=== PATIENT | female | born 1950 | race Caucasian/White ===

== ENCOUNTER 2018-10-25 14:13 | Inpatient (IN) | payer MEDICARE, OTHER ==
[~2018-10-25] VITALS: Ht 165.1 cm; Wt 98.6 kg
[2018-10-25] MEDS ORDERED: METO-429 PO (16:16)
[2018-10-25] MEDS ORDERED: LEVO75TA5 PO (16:17)
[2018-10-25] MEDS ORDERED: LOSA50TA14 PO (16:18)
[2018-10-25] MEDS ORDERED: CLON-379 PO (16:18)
[2018-10-25] MEDS ORDERED: OMEP1CAP24 PO (16:19)
[2018-10-25] MEDS ORDERED: ACETAMINOPHEN 325 MG TAB PO PRN (16:30)
[2018-10-25] MEDS ORDERED: ONDANSETRON 4 MG INJ IV PRN (16:30)
[2018-10-25] MEDS ORDERED: LIDOCAINE 1% (MPF) 5 ML VIAL ONE (17:42)
[2018-10-25] MEDS ORDERED: ALBUTEROL 0.083% (NEB) 2.5 MG/3 ML AMP HHN STA (19:02)
--- NOTE | 2018-10-25 19:02 | ERD ---
ER Documentation Chief Complaint Chief Complaint pt is bib family with c/o sob, sent by PMD for "fluid in lungs" HPI Patient is a 68-year-old female with hypertension who presents for shortness of breath. The patient was sent by Dr. Altman for shortness of breath and pleural effusion. The patient's symptoms started 2-3 months ago and have been worsening. She has shortness of breath with minimal exertion. Patient denies any pain. The patient has no fevers. Upon review of old medical records this is the patient's first visit to the emergency department. ROS All systems reviewed and are negative except as per history of present illness. Medications Home Meds Reported Medications Omeprazole/Sodium Bicarbonate (OMEPRAZOLE-BICARB 40-1,100 CAP) 1 Each Capsule, 1 CAP PO NEEDED, #30 CAP 10/25/18 Losartan Potassium* (Losartan Potassium*) 50 Mg Tablet, 50 MG PO DAILY, TAB 10/25/18 Clonidine Hcl* (Clonidine Hcl*) 0.1 Mg Tab, 0.1 MG PO BID, TAB 10/25/18 Levothyroxine Sodium* (Levothyroxine Sodium*) 75 Mcg Tablet, 75 MCG PO BEFORE BREAKFAST, #30 TAB 10/25/18 Metoprolol Tartrate* (Lopressor*) 50 Mg Tab, 50 MG PO BID, #60 TAB 10/25/18 Allergies Allergies: Coded Allergies: No Known Allergy (Unverified , 10/25/18) PMhx/Soc History of Surgery: No Anesthesia Reaction: No Hx Neurological Disorder: No Hx Respiratory Disorders: No Hx Cardiac Disorders: Yes (HTN) Hx Psychiatric Problems: No Hx Miscellaneous Medical Probl: No Hx Alcohol Use: No Hx Substance Use: No Hx Tobacco Use: No Smoking Status: Never smoker FmHx Family History: diabetes Physical Exam Vitals Vital Signs Date Temp Pulse Resp B/P (MAP) Pulse Ox O2 O2 Flow FiO2 Time Delivery Rate 10/25/18 98.4 79 23 159/62 95 Nasal 3.0 18:52 (94) Cannula 10/25/18 99.1 79 19 152/87 95 Nasal 2.0 18:23 (108) Cannula 10/25/18 99.1 87 19 148/89 95 Nasal 2.0 17:11 (108) Cannula 10/25/18 99.1 96 19 159/89 95 Nasal 2.0 16:16 (112) Cannula 10/25/18 Nasal 3 16:16 Cannula 10/25/18 99.1 95 20 177/86 94 14:16 (116) Physical Exam Const: No acute distress Head: Atraumatic Eyes: Normal Conjunctiva ENT: Normal External Ears, Nose and Mouth. Neck: Full range of motion. No meningismus. Resp: Decreased breath sounds on the left Cardio: Regular rate and rhythm, no murmurs Abd: Soft, non tender, non distended. Normal bowel sounds Skin: No petechiae or rashes Back: No midline or flank tenderness Ext: No cyanosis, or edema Neur: Awake and alert Psych: Normal Mood and Affect Result Diagram: 10/25/18 1555 10/25/18 1555 Results 24 hrs Laboratory Tests Test 10/25/18 15:55 10/25/18 16:04 10/25/18 17:11 White Blood Count 8.5 10^3/ul Red Blood Count 6.09 10^6/ul Hemoglobin 15.9 g/dl Hematocrit 49.4 % Mean Corpuscular Volume 81.1 fl Mean Corpuscular Hemoglobin 26.1 pg Mean Corpuscular 32.2 g/dl Hemoglobin Concent Red Cell Distribution Width 13.6 % Platelet Count 257 10^3/UL Mean Platelet Volume 10.2 fl Immature Granulocytes % 0.600 % Neutrophils % 69.7 % Lymphocytes % 17.4 % Monocytes % 6.6 % Eosinophils % 4.9 % Basophils % 0.8 % Nucleated Red Blood Cells % 0.0 /100WBC Immature Granulocytes # 0.050 10^3/ul Neutrophils # 5.9 10^3/ul Lymphocytes # 1.5 10^3/ul Monocytes # 0.6 10^3/ul Eosinophils # 0.4 10^3/ul Basophils # 0.1 10^3/ul Nucleated Red Blood Cells # 0.0 10^3/ul Sodium Level 141 mmol/L Potassium Level 4.6 mmol/L Chloride Level 107 mmol/L Carbon Dioxide Level 26 mmol/L Anion Gap 8 Blood Urea Nitrogen 11 mg/dl Creatinine 0.69 mg/dl Est Glomerular Filtrat Rate mL/min > 60 mL/min Glucose Level 92 mg/dl Lactic Acid Level 1.5 mmol/L Calcium Level 10.4 mg/dl POC Venous Lactate 1.2 mmol/L Prothrombin Time 13.6 Sec Prothrombin Time Ratio 1.1 INR International Normalized Ratio 1.03 Activated Partial Thromboplast 26.9 Sec Time Current Medications Medications Dose Sig/Rajesh Start Time Status Last (Trade) Ordered Route PRN Stop Time Admin Dose Reason Admin Ondansetron 4 mg BRIDGE ORDER 10/25/18 HCl (Zofran PRN IV 16:30 Inj) NAUSEA/VOMITI 10/26/18 16:29 NG 650 mg ER BRIDGE 10/25/18 Acetaminophen PRN PO 16:30 (Tylenol .MILD PAIN 10/26/18 16:29 Tab) 1-3 OR TEMP Lidocaine 5 ml STK-MED 10/25/18 DC (Xylocaine ONCE .ROUTE 17:42 1% (Mpf)) 10/25/18 17:43 Procedures/MDM Chest x-ray shows pleural effusion per radiology. Smoking Cessation Therapy: Pt. was lectured for greater than 3 minutes on the health risks of continued smoking and the benefits of cessation. Patient is a 68-year-old female who presents with shortness of breath. She was found to have left-sided pleural effusion. She had an ultrasound-guided thoracentesis performed by radiology. I doubt pneumonia at this time. I doubt sepsis. The patient will be admitted to the care of Dr. Altman the primary doctor to a medical surgical bed. Departure Diagnosis: Primary Impression: Pleural effusion Additional Impression: Shortness of breath Condition: IFRAH Bo MD Oct 25, 2018 19:02
[2018-10-25 23:00] VITALS: Ht 165.1 cm; Wt 98.6 kg
[2018-10-26 00:30] VITALS: BP 135/65; PULSE 112; RESP 18
[2018-10-26] MEDS ORDERED: ACETAMINOPHEN 500 MG TAB PO PRN (01:30)
[2018-10-26] MEDS ORDERED: ALBUTEROL/IPRATROPIUM (NEB) 3 ML AMP HHN PRN (01:30)
[2018-10-26] MEDS ORDERED: ZOLPIDEM 5 MG TAB PO PRN (01:30)
[2018-10-26] MEDS: LEVOTHYROXINE 75 MCG TAB PO SCH (06:52)
[2018-10-26] MEDS: PANTOPRAZOLE (EC) 40 MG TAB PO SCH (06:52)
[2018-10-26 08:00] VITALS: BP 161/70; PULSE 93; RESP 19
[2018-10-26] MEDS: LOSARTAN 50 MG TAB PO SCH (08:43)
[2018-10-26] MEDS: METOPROLOL 25 MG TAB PO SCH ×2 (08:43→20:36)
[2018-10-26] MEDS: NICOTINE (21 MG/24 HR) PATCH TRANSDERM SCH (08:46)
--- NOTE | 2018-10-26 08:49 | CONS ---
Assessment/Plan Assessment/Plan Hospital Course (Demo Recall) Dyspnea: likely from underlying pleural effusion +/- COPD exacerbation Left pleural effusion: with report of mass, likely malignant Left lung mass COPD HTN Tobacco abuse -?need for repeat thoracentesis -continue metoprolol 25mg BID, losartan 50mg, clonidine 0.1mg BID -check echo Consultation Date/Type/Reason Admit Date/Time Oct 25, 2018 at 16:08 Date of Consultation: Oct 26, 2018 Type of Consult Cardiology Reason for Consultation Dyspnea, HTN Requesting Provider: MAGDA JOSÉ MD Date/Time of Note DATE: 10/26/18 TIME: 08:40 Hx of Present Illness 68 yo F with a h/o recurrent left pleural effusion, reported lung mass but pt denies, HTN, COPD, tobacco use who was sent in by Dr. José for dyspnea and for thoracentesis. She had 1 L removed yesterday but the CXR looks minimally improved. She feels better but still SOB. This has been ongoing for 2-3 months per pt. She has had a chest CT and PET but she does not think she has a mass. No cardiac issues that she is aware of. No chest pain with or without exertion. No leg edema. Has been smoking 1.5 ppd for 50 yrs. per hPI Past Medical History per hPI Home Meds Reported Medications Omeprazole/Sodium Bicarbonate (OMEPRAZOLE-BICARB 40-1,100 CAP) 1 Each Capsule, 1 CAP PO NEEDED, #30 CAP 10/25/18 Losartan Potassium* (Losartan Potassium*) 50 Mg Tablet, 50 MG PO DAILY, TAB 10/25/18 Clonidine Hcl* (Clonidine Hcl*) 0.1 Mg Tab, 0.1 MG PO BID, TAB 10/25/18 Levothyroxine Sodium* (Levothyroxine Sodium*) 75 Mcg Tablet, 75 MCG PO BEFORE BREAKFAST, #30 TAB 10/25/18 Metoprolol Tartrate* (Lopressor*) 50 Mg Tab, 50 MG PO BID, #60 TAB 10/25/18 Medications Current Medications Ondansetron HCl (Zofran Inj) 4 mg BRIDGE ORDER PRN IV NAUSEA/VOMITING; Start 10/25/18 at 16:30; Stop 10/26/18 at 16:29 Acetaminophen (Tylenol Tab) 650 mg ER BRIDGE PRN PO .MILD PAIN 1-3 OR TEMP; Start 10/25/18 at 16:30; Stop 10/26/18 at 16:29 Clonidine (Catapres) 0.1 mg BID PO ; Start 10/26/18 at 09:00 Levothyroxine Sodium (Synthroid) 75 mcg BEFORE BREAKFAST PO Last administered on 10/26/18at 06:52; Admin Dose 75 MCG; Start 10/26/18 at 07:00 Losartan Potassium (Cozaar) 50 mg DAILY PO ; Start 10/26/18 at 09:00 Albuterol/ Ipratropium (Duoneb) 3 ml Q8H RESP THERAPY PRN HHN SHORTNESS OF BREATH; Start 10/26/18 at 01:30 Acetaminophen (Tylenol Tab) 500 mg Q8 PRN PO MILD PAIN(1-3)OR ELEVATED TEMP Last administered on 10/26/18at 06:53; Admin Dose 500 MG; Start 10/26/18 at 01:30 Pantoprazole (Protonix Tab) 40 mg DAILY@06 PO Last administered on 10/26/18at 06:52; Admin Dose 40 MG; Start 10/26/18 at 06:00 Metoprolol Tartrate (Lopressor) 25 mg BID PO ; Start 10/26/18 at 09:00 Zolpidem Tartrate (Ambien) 5 mg HS PRN PO INSOMNIA; Start 10/26/18 at 01:30 Nicotine (Nicoderm 21 Mg/ 24hr) 1 patch DAILY TRANSDERM ; Start 10/26/18 at 09:00 Allergies: Coded Allergies: No Known Allergy (Unverified , 10/25/18) Social History Smoking Status: Current every day smoker Exam/Review of Systems Vital Signs Vitals Vital Signs Date Temp Pulse Resp B/P (MAP) Pulse Ox O2 O2 Flow FiO2 Time Delivery Rate 10/26/18 98.4 93 19 161/70 91 Room Air 08:00 (100) 10/25/18 3.0 23:35 10/25/18 21 19:34 Intake and Output 10/25/18 10/25/18 10/26/18 1414:59 22:59 06:59 IntakeIntake Total 360 ml BalanceBalance 360 ml Exam Constitutional: alert, oriented Psych: no complaints, nl mood/affect Head: normocephalic, atraumatic Neck: No jvd Respiratory: diminished breath sounds (left base), wheezing (mild anterior ); No clear to auscultation Cardiovascular: regular rate and rhythm; No edema, No systolic murmur Gastrointestinal: soft, non-tender; No distended Neurological: nl mental status, nl speech Labs Result Diagram: 10/25/18 1555 10/25/18 1555 Results 24hrs Laboratory Tests Test 10/25/18 15:55 10/25/18 16:04 10/25/18 17:11 10/25/18 17:30 White Blood Count 8.5 Red Blood Count 6.09 H Hemoglobin 15.9 Hematocrit 49.4 H Mean Corpuscular 81.1 L Volume Mean Corpuscular 26.1 L Hemoglobin Mean Corpuscular 32.2 Hemoglobin Concent Red Cell 13.6 Distribution Width Platelet Count 257 Mean Platelet 10.2 Volume Immature 0.600 H Granulocytes % Neutrophils % 69.7 Lymphocytes % 17.4 Monocytes % 6.6 Eosinophils % 4.9 Basophils % 0.8 Nucleated Red 0.0 Blood Cells % Immature 0.050 H Granulocytes # Neutrophils # 5.9 Lymphocytes # 1.5 Monocytes # 0.6 Eosinophils # 0.4 Basophils # 0.1 Nucleated Red 0.0 Blood Cells # Sodium Level 141 Potassium Level 4.6 Chloride Level 107 Carbon Dioxide 26 Level Anion Gap 8 Blood Urea 11 Nitrogen Creatinine 0.69 Est Glomerular > 60 Filtrat Rate mL/min Glucose Level 92 Lactic Acid Level 1.5 Calcium Level 10.4 H POC Venous Lactate 1.2 Prothrombin Time 13.6 Prothrombin Time 1.1 Ratio INR International 1.03 Normalized Ratio Activated 26.[address] Time Body Fluid Type PLEURAL FLUID Body Fluid Volume 1050.0 Body Fluid Color CHANCE Body Fluid CLOUDY Appearance Body Fluid WBC 5719 Body Fluid RBC 85265 (Auto) Body Fluid 5.1 Polynuclear WBCs (%) Body Fluid 94.9 Mononuclear Cells % Auto Body Fluid Glucose 89 Body Fluid Total 5.4 Protein Body Fluid 731 Lactate Dehydrogen ase Test 10/25/18 18:48 10/26/18 06:06 Lactic Acid Level 1.0 Magnesium Level 2.0 Iron Level 39 Total Iron Binding 294 Capacity Percent Iron 13 L Saturation Thyroid 2.040 Stimulating Hormone (TSH) Medications Medications Current Medications Ondansetron HCl (Zofran Inj) 4 mg BRIDGE ORDER PRN IV NAUSEA/VOMITING; Start 10/25/18 at 16:30; Stop 10/26/18 at 16:29 Acetaminophen (Tylenol Tab) 650 mg ER BRIDGE PRN PO .MILD PAIN 1-3 OR TEMP; Start 10/25/18 at 16:30; Stop 10/26/18 at 16:29 Clonidine (Catapres) 0.1 mg BID PO ; Start 10/26/18 at 09:00 Levothyroxine Sodium (Synthroid) 75 mcg BEFORE BREAKFAST PO Last administered on 10/26/18at 06:52; Admin Dose 75 MCG; Start 10/26/18 at 07:00 Losartan Potassium (Cozaar) 50 mg DAILY PO ; Start 10/26/18 at 09:00 Albuterol/ Ipratropium (Duoneb) 3 ml Q8H RESP THERAPY PRN HHN SHORTNESS OF BREATH; Start 10/26/18 at 01:30 Acetaminophen (Tylenol Tab) 500 mg Q8 PRN PO MILD PAIN(1-3)OR ELEVATED TEMP Last administered on 10/26/18at 06:53; Admin Dose 500 MG; Start 10/26/18 at 01:30 Pantoprazole (Protonix Tab) 40 mg DAILY@06 PO Last administered on 10/26/18at 06:52; Admin Dose 40 MG; Start 10/26/18 at 06:00 Metoprolol Tartrate (Lopressor) 25 mg BID PO ; Start 10/26/18 at 09:00 Zolpidem Tartrate (Ambien) 5 mg HS PRN PO INSOMNIA; Start 10/26/18 at 01:30 Nicotine (Nicoderm 21 Mg/ 24hr) 1 patch DAILY TRANSDERM ; Start 10/26/18 at 09:00 JOSE ROBERTO CROCKETT Oct 26, 2018 08:49
--- NOTE | 2018-10-26 10:47 | HP ---
Date/Time of Note Date/Time of Note DATE: 10/26/18 TIME: 10:25 Assessment/Plan VTE Prophylaxis Risk score (from Nsg)>0 risk: 4 SCD applied (from Nsg): No SCD contraindicated: other (On.) Pharmacological prophylaxis: LMWH Lines/Catheters IV Catheter Type (from Nrs): [place] [employer] line still needed: No Urinary Cath still in place: No Reason Cath still needed: urinary retention, other (indicate) (On and of incontinence.) Assessment/Plan Assessment/Plan 1. Pet proven lung mass size of almost 10 cm in the apical region of left upper lobe ,demonstrating associated air bronchograms with according to the patient PET scan report there was a lower level of metabolic activity in this process is most consistent with a benign process such mucous plaque causing postobstructive atelectasis versus resolving pneumonia the probability for hypometabolic carcinoma cannot be excluded(according to PET report). 2. PET proven 1.3/0 0.8 cm well-circumscribed bright circumscribed nodular soft tissue attenuation in the left upper lobe abutting the descending thoracic aorta at the level of just below the aortic arch demonstrating maximum SUV of 4.2 this is nonspecific finding which may be malignant or inflammatory. 3.S/P thoracentesis, 10/25/2018; Approximately 1.0 liters of serous fluid was aspirated for moderate sized right pleural effusion. 4. Thickening of the mucosa of the distal esophagus measuring 1.3 cm in thickness demonstrating maximum SUV of 5.0 without focal mass most likely chronic esophagitis;According to PET scan . 5.0.9 to 0.9 cm left adrenal gland nodule likely an adenoma(According to PET). 6.Hepatomegaly 7.S/P cholecystectomy . 8.Bilateral hemorrhagic renal cysts . 9.Atherosclerotic disease. 10.COPD 11. nicotine addiction with 1 to 1/2 pack smoking more than 50 years until yesterday. History of short period of not smoking couple of months. 12. Morbid obesity 13. Snoring with apnea 14. Dyslipidemia 15. Low back pain 16. The lumbar sacral and cervical radiculopathy 17. Pelvic relaxation with mixed incontinence 18. 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 19. 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 20. Polycythemia 21. Hypothyroidism currently on levothyroxine 75 mcg daily. 22. Incomplete data. Result Diagram: 10/25/18 1555 10/25/18 1555 Results 24hrs Laboratory Tests Test 10/25/18 15:55 10/25/18 16:04 10/25/18 17:11 10/25/18 17:30 White Blood Count 8.5 Red Blood Count 6.09 H Hemoglobin 15.9 Hematocrit 49.4 H Mean Corpuscular 81.1 L Volume Mean Corpuscular 26.1 L Hemoglobin Mean Corpuscular 32.2 Hemoglobin Concent Red Cell 13.6 Distribution Width Platelet Count 257 Mean Platelet 10.2 Volume Immature 0.600 H Granulocytes % Neutrophils % 69.7 Lymphocytes % 17.4 Monocytes % 6.6 Eosinophils % 4.9 Basophils % 0.8 Nucleated Red 0.0 Blood Cells % Immature 0.050 H Granulocytes # Neutrophils # 5.9 Lymphocytes # 1.5 Monocytes # 0.6 Eosinophils # 0.4 Basophils # 0.1 Nucleated Red 0.0 Blood Cells # Sodium Level 141 Potassium Level 4.6 Chloride Level 107 Carbon Dioxide 26 Level Anion Gap 8 Blood Urea 11 Nitrogen Creatinine 0.69 Est Glomerular > 60 Filtrat Rate mL/min Glucose Level 92 Lactic Acid Level 1.5 Calcium Level 10.4 H POC Venous Lactate 1.2 Prothrombin Time 13.6 Prothrombin Time 1.1 Ratio INR International 1.03 Normalized Ratio Activated 26.[address] Time Body Fluid Type PLEURAL FLUID Body Fluid Volume 1050.0 Body Fluid Color CHANCE Body Fluid CLOUDY Appearance Body Fluid WBC 5719 Body Fluid RBC 27938 (Auto) Body Fluid 5.1 Polynuclear WBCs (%) Body Fluid 94.9 Mononuclear Cells % Auto Body Fluid Glucose 89 Body Fluid Total 5.4 Protein Body Fluid 731 Lactate Dehydrogen ase Test 10/25/18 18:48 10/26/18 06:06 Lactic Acid Level 1.0 Magnesium Level 2.0 Iron Level 39 Total Iron Binding 294 Capacity Percent Iron 13 L Saturation Thyroid 2.040 Stimulating Hormone (TSH) HPI/ROS Admit Date/Time Admit Date/Time Oct 25, 2018 at 16:08 Hx of Present Illness Shortness of breath cough getting tired easily. This 68 years old female with long history of heavy smoking 1 to 1/2 pack a day was evaluated as an outpatient and was found to have a lung mass size of almost 10 cm in the apical region of left upper lobe ,demonstrating associated air bronchograms with according to the patient PET scan report there was a lower level of metabolic activity in this process is most consistent with a benign process such mucous plaque causing postobstructive atelectasis versus resolving pneumonia the probability for hypometabolic carcinoma cannot be excluded. There was also a 1.3/0 0.8 cm well- circumscribed bright circumscribed nodular soft tissue attenuation in the left upper lobe abutting the descending thoracic aorta at the level of just below the aortic arch demonstrating maximum SUV of 4.2 this is nonspecific finding which may be malignant or inflammatory; there is also moderate sized right pleural effusion. According to PET there was also thickening of the mucosa of the distal esophagus measuring 1.3 cm in thickness demonstrating maximum SUV of 5.0 without focal mass most likely chronic esophagitis. 0.9 to 0.9 cm left adrenal gland nodule likely an adenoma hepatomegaly status post cholecystectomy not bilateral hemorrhagic renal cysts and atherosclerotic disease. Examination was done in the diagnostic imaging network [facility] imaging center telephone #[phone] fax #[phone]. Date of examination 10/20/2018. ROS Constitutional: chills, diaphoresis, fatigue, nausea, poor po, weight change; No no complaints, No improved, No disoriented, No febrile, No other Eyes: redness, visual change; No no complaints, No pain, No discharge, No other ENT: congestion, dysphagia, sore throat; No no complaints, No bleeding, No pain, No discharge, No other Respiratory: cough, pleuritic pain, shortness of breath, sputum, wheezing; No no complaints, No pain, No other Cardiovascular: chest pain, edema, lightheadedness, orthopenea, palpitations, paroxysmal nocturnal dyspnea; No no complaints, No other Gastrointestinal: constipation, decreased appetite, flatus, nausea, passing stool Genitourinary: dysuria; No no complaints, No bleeding, No discharge, No flank pain, No hematuria, No other Musculoskeletal: back pain, bone/joint pain, neck pain; No no complaints, No restricted range of motion, No swelling, No other Skin: pruritis; No no complaints, No bruising, No erythema, No laceration, No rash, No skin lesions, No other Neurologic: dizziness, focal-weakness, syncope; No no complaints, No confusion, No headache, No seizure, No other Endocrine: dry skin; No no complaints, No polyuria, No polydypsia, No temp intolerance, No weight change, No other Lymphatic: No no complaints, No adenopathy, No tender nodes, No lymphadema, No other Psychological: anxiety; No no complaints, No nl mood/affect, No confusion, No depression, No suicidal, No other Immunologic: No no complaints, No immunodeficiency, No pruritis, No rhinitis, No urticaria, No other PMH/Family/Social Past Medical History Medical History: angina, congestive heart failure, coronary artery disease, diabetes, gallstones, GERD, high cholesterol, hypertension, hypothyroid, renal disease, urinary tract infection Medications Current Medications Ondansetron HCl (Zofran Inj) 4 mg BRIDGE ORDER PRN IV NAUSEA/VOMITING; Start 10/25/18 at 16:30; Stop 10/26/18 at 16:29 Acetaminophen (Tylenol Tab) 650 mg ER BRIDGE PRN PO .MILD PAIN 1-3 OR TEMP; Start 10/25/18 at 16:30; Stop 10/26/18 at 16:29 Clonidine (Catapres) 0.1 mg BID PO Last administered on 10/26/18 08:45; Admin Dose 0.1 MG; Start 10/26/18 at 09:00 Levothyroxine Sodium (Synthroid) 75 mcg BEFORE BREAKFAST PO Last administered on 10/26/18 06:52; Admin Dose 75 MCG; Start 10/26/18 at 07:00 Losartan Potassium (Cozaar) 50 mg DAILY PO Last administered on 10/26/18 08:43; Admin Dose 50 MG; Start 10/26/18 at 09:00 Albuterol/ Ipratropium (Duoneb) 3 ml Q8H RESP THERAPY PRN HHN SHORTNESS OF BREATH; Start 10/26/18 at 01:30 Acetaminophen (Tylenol Tab) 500 mg Q8 PRN PO MILD PAIN(1-3)OR ELEVATED TEMP Last administered on 10/26/18 06:53; Admin Dose 500 MG; Start 10/26/18 at 01:30 Pantoprazole (Protonix Tab) 40 mg DAILY@06 PO Last administered on 10/26/18 06:52; Admin Dose 40 MG; Start 10/26/18 at 06:00 Metoprolol Tartrate (Lopressor) 25 mg BID PO Last administered on 4/24/19at 08:43; Admin Dose 25 MG; Start 10/26/18 at 09:00 Zolpidem Tartrate (Ambien) 5 mg HS PRN PO INSOMNIA; Start 10/26/18 at 01:30 Nicotine (Nicoderm 21 Mg/ 24hr) 1 patch DAILY TRANSDERM Last administered on 10/26/18at 08:46; Admin Dose 1 PATCH; Start 10/26/18 at 09:00 Coded Allergies: No Known Allergy (Unverified , 10/25/18) Past Surgical History Past Surgical Hx: cholecystectomy Family History Significant Family History: heart disease, COPD Social History Alcohol Use: none Smoking Status: Current every day smoker Drug Use: none Exam/Review of Systems Vital Signs Vitals Vital Signs Date Temp Pulse Resp B/P (MAP) Pulse Ox O2 O2 Flow FiO2 Time Delivery Rate 10/26/18 98.4 93 19 161/70 91 Room Air 08:00 (100) 10/25/18 3.0 23:35 10/25/18 21 19:34 Intake and Output 10/25/18 10/25/18 10/26/18 1515:00 23:00 07:00 IntakeIntake Total 360 ml BalanceBalance 360 ml Exam Constitutional: alert, oriented, well developed, distress Psych: anxiety, depression; No no complaints, No nl mood/affect, No confusion, No suicidal, No other Head: normocephalic, atraumatic; No lacerations, No hematomas, No other Eyes: EOMI, nl lids, PERRL, other (Erythematous conjunctiva bilaterally); No nl conjunctiva, No nl sclera, No icteric, No fundi, disc ENMT: nl external ears & nose, nl lips & teeth, mucosa pink and moist, tympanic membranes, other Neck: jvd (Sclerotic tympanic membranes hearing impaired bilaterally. Nasal discharge), bruits, thyromegaly, nuchal rigidity Respiratory: congested cough, diminished breath sounds, wheezing (Left-sided.) Cardiovascular: regular rate and rhythm, nl pulses, edema, jugular venous distention (JVD), systolic murmur Gastrointestinal: soft, nl liver, spleen (Very obese mildly tender epigastric region.), bowel sounds, distended, hepatomegaly, other (Status post appendectomy related to scar); No non-tender, No ascites, No firm, No mass, No rebound or guarding, No splenomegaly, No surgical scars, No tender Genitourinary - Female: nl adnexae, nl external genitalia; No CMT, No CVA tenderness, No uterus, No other Musculoskeletal: joint tenderness, muscle tone, muscle weakness; No nl extremities to inspection, No nl gait and stance, No range of motion, No spine non-tender, No swelling, No other Extremities: normal pulses; No calf tenderness, No cyanosis, No clubbing, No edema, No pitting pedal edema, No palpable cord, No tenderness, No other Neurological: AWAKE OVERNIGHT MONITOR II-XII intact (Hearing impairment.), nl mental status Skin: nl turgor; No rash or lesions, No diaphoresis, No ecchymosis, No laceration, No puncture , No other Lymph: No nl lymph nodes, No enlarged, No nontender, No other MAGDA JOSÉ MD Oct 26, 2018 10:35
[2018-10-26] MEDS: AZITHROMYCIN 500MG/NS (PMX) 250 ML IVPB SCH (12:21)
[2018-10-26] MEDS: SOD FERRIC GLUC COMPLX 125 MG in SOD CHLORIDE 0.9% 100 ML IVPB SCH (13:54)
[2018-10-26 14:00] VITALS: BP 128/59; PULSE 79; RESP 18
--- NOTE | 2018-10-26 14:01 | CONS ---
DATE OF ADMISSION: 10/25/2018 DATE OF CONSULTATION: TYPE OF CONSULTATION: Pulmonary. REASON FOR CONSULTATION: Pleural effusion. HISTORY OF PRESENT ILLNESS: This is an unfortunate 68-year-old lady with extensive tobacco history, presented to primary care physician with left apical lung mass of 10 cm in size, PET scan positive. She had increasing shortness of breath, presented to the emergency room with worsening respiratory di stress and left pleural effusion. She underwent thoracentesis of 1 liter of pleural effusion and is pending cytology. PAST MEDICAL HISTORY: 1. COPD. 2. Continued tobacco use. 3. Coronary artery disease. 4. Hyperlipidemia. 5. Obstructive sleep apnea. MEDICATIONS: Per chart. ALLERGIES: NONE. SOCIAL HISTORY: Positive tobacco history. Occasional alcohol. No history of drug abuse. FAMILY HISTORY: Noncontributory. SYSTEMS REVIEW: A 12-point review of systems was negative other than that mentioned above. PHYSICAL EXAMINATION: GENERAL: Moderately obese lady, appears comfortable at rest, in no acute distress. VITAL SIGNS: Currently afebrile, pulse is 100, blood pressure 160/70, O2 saturation 91% on room air. NECK: Supple. No JVD or lymphadenopathy. CARDIAC: S1, S2. No added sounds or murmurs. CHEST: Diminished air entry bilaterally. ABDOMEN: Soft, nontender. No guarding or rebound. EXTREMITIES: No cyanosis, clubbing, edema. NEUROLOGIC: Generalized weakness. LABORATORY DATA: White count 8.5, hemoglobin 15.9. Chemistry within normal limits. DIAGNOSTIC DATA: Pleural fluid studies demonstrate an exudative effusion with a total protein of 5.3 . IMPRESSION AND PLAN: Lung mass with left pleural effusion, likely malignant pleural effusion which w ould confirm stage IV non-small cell lung cancer. We will await pleural fluid studies. If unremarka ble, then the patient may require tissue biopsy of primary apical lesion. The patient should also be advised on smoking cessation. Dictated By: JULIO CÉSAR ELIZONDO MD SV/KIRA Conf#: [id number] DID#: [id number] CC: ORAL PONCE; MAGDA JOSÉ MD;*EndCC*
--- NOTE | 2018-10-26 14:24 | RADRPT ---
Echocardiogram Report Patient Name: MECCA NGUYENPatient ID: [id number] : 1950 (68y 1m)Study Date: 10/26/2018 10:57:21 AM Gender: FAccession #: [id number] Tech: Mykel Cee [facility] Location: [id number]- Ref.Physician: JOSE ROBERTO BAKER Height(Cm): BSA: Weight(Kg): Quality: AdequateAccount #: Procedures: Echocardiographic Report: Transthoracic echocardiogram with complete 2D, M-Mode, and doppler examination. Indications: Dyspnea. Measurements: 2D/M Mode Doppler Measurement Value Normal Range Measurement Value Normal Range LVIDd 2D 3.7 [ 3.8 - 5.2 ] cm AV Peak Damir 1.7 [ 100.0 - 170.0 ] cm/sec LVIDs 2D 2.3 [ 2.2 - 3.5 ] cm AV Peak PG 11.0 [ 2.0 - 9.0 ] mmHg LVPWd 2D 1.5 [ 0.6 - 0.9 ] cm LVOT Peak Damir 1.5 [ 70.0 - 110.0 ] cm/sec IVSd 2D 1.5 [ 0.6 - 0.9 ] cm LVOT Peak PG 9.0 [ 2.0 - 6.0 ] mmHg IVS/LVPW 2D 1.0 ratio MV E Peak Damir 0.7 [ 60.0 - 130.0 ] cm/sec AoR Diam 2D 2.6 [ 2.3 - 3.1 ] cm MV A Peak Damir 1.0 [ 100.0 - 120.0 ] cm/sec LA/Ao 2D 1 ratio MV E/A 0.7 [ 0.8 - 1.5 ] ratio LA Dimen 2D 3.1 [ 2.7 - 3.8 ] cm MV Decel Time 239 [ 104 - 258 ] msec Lat E` Damir 0.1 [ 10.0 - 15.0 ] cm/sec MV E/A 0.7 [ 0.8 - 1.5 ] ratio TR Peak Damir 2.7 [ 100.0 - 280.0 ] cm/sec TR Peak PG 28.0 mmHg RVSP 31.0 [ 10.0 - 36.0 ] mmHg Findings: Left Ventricle: Normal left ventricular systolic function. Normal left ventricular cavity size. Mil-moderate concentric left ventricular hypertrophy. Ejection fraction is visually estimated at 60-65 %. Tissue Doppler/Mitral Doppler indices are consistent with impaired relaxation (Stage I diastolic dysfunction). Right Ventricle: Normal right ventricular size. Normal right ventricular systolic function. Left Atrium: There is mild enlargement of left atrium. Right Atrium: The right atrium is normal in size. Mitral Valve: Normal appearance of the mitral valve. Normal appearance and function of the mitral valve with trace physiologic regurgitation. Aortic Valve: Normal appearance of the aortic valve. No significant aortic stenosis or insufficiency. Tricuspid Valve: Normal appearance of the tricuspid valve. Estimated peak PA systolic pressure 31 mmHg. There is mild tricuspid regurgitation. Pericardium: Normal pericardium with no significant pericardial effusion. Left pleural effusion seen. Aorta: Normal aortic root. IVC: Normal size and normal respiratory collapse consistent with normal right atrial pressure. Conclusions: Normal left ventricular systolic function. Normal left ventricular cavity size. Mil-moderate concentric left ventricular hypertrophy. Ejection fraction is visually estimated at 60-65 %. Tissue Doppler/Mitral Doppler indices are consistent with impaired relaxation (Stage I diastolic dysfunction). No significant valvular stenosis or regurgitation seen. Estimated peak PA systolic pressure 31 mmHg. Normal size and normal respiratory collapse consistent with normal right atrial pressure. Electronically Signed By: Jose Roberto Baekr 2018-10-26 14:24:23 PDT
[2018-10-26 20:30] VITALS: BP 132/83; PULSE 87; RESP 18
--- NOTE | 2018-10-27 00:10 | CONS ---
DATE OF ADMISSION: 10/25/2018 DATE OF CONSULTATION: TYPE OF CONSULTATION: Gastroenterology. REASON FOR CONSULTATION: Abnormal finding on a CAT scan, possible esophagitis. HISTORY OF PRESENT ILLNESS: The patient is a 68-year-old female with a history of heavy smoking, adm itted to the hospital for shortness of breath. She had a PET scan done, which showed a lung mass 10 cm size in the apical region of the upper lobe. The patient also had thickening of the mucosa in the distal part of the esophagus, mostly related to chronic esophagitis, so GI consult was called in. O n interrogation, the patient denied dysphagia, no heartburn, no nausea, no vomiting. Denies any GI b leeding, no weight loss, no chest pain. REVIEW OF SYSTEMS: Grossly negative. PAST MEDICAL HISTORY: Angina, CHF, coronary artery disease, gallstones, GERD, hypertension, hypothyr oidism and UTI. MEDICATIONS: All reviewed. PAST SURGICAL HISTORY: Cholecystectomy. SOCIAL HISTORY: The patient is a heavy smoker. PHYSICAL EXAMINATION: GENERAL: Overweight, not in distress. VITAL SIGNS: Stable. HEENT: Unremarkable. NECK: Supple, no thyromegaly, no lymphadenopathy. CARDIOVASCULAR: No murmur, gallop or click. LUNGS: Clear. ABDOMEN: Benign. EXTREMITIES: No edema. CENTRAL NERVOUS SYSTEM: Grossly within normal limits. Hematocrit is 49.4. LABORATORY DATA: WBC is within normal limits. The patient's ____ also was normal. There is no live r function test. She had a thoracocentesis, cytology is pending. IMPRESSION: 1. Lung mass. 2. Chronic obstructive pulmonary disease. 3. Nicotine usage. 4. Status post cholecystectomy. 5. Hyperlipidemia. 6. Obesity. 7. Obstructive sleep apnea. 8. Thickening of the distal part of the esophagus, mostly related to esophagitis. 9. Hypothyroidism. 10. Status post thoracocentesis. PLAN: Review the cytology. Continue present care and we will start the patient on PPI for esophagit is. Dictated By: KAT SARAVIA/NTS Conf#: [id number] DID#: [id number] CC: MAGDA JOSÉ MD;*EndCC*
[2018-10-27 02:02] VITALS: BP 119/60; PULSE 71; RESP 18
[2018-10-27] MEDS: PANTOPRAZOLE (EC) 40 MG TAB PO SCH (06:00)
[2018-10-27] MEDS: LEVOTHYROXINE 75 MCG TAB PO SCH (06:00)
[2018-10-27 07:54] VITALS: BP 136/63; PULSE 78; RESP 18
[2018-10-27] MEDS: LOSARTAN 50 MG TAB PO SCH (09:13)
[2018-10-27] MEDS: METOPROLOL 25 MG TAB PO SCH ×2 (09:14→21:15)
[2018-10-27] MEDS: NICOTINE (21 MG/24 HR) PATCH TRANSDERM SCH (09:20)
--- NOTE | 2018-10-27 10:09 | PN ---
Date/Time of Note Date/Time of Note DATE: 10/27/18 TIME: 10:00 Assessment/Plan VTE Prophylaxis Risk score (from Nsg)>0 risk: 4 SCD applied (from Nsg): No SCD contraindicated: other (on.) Pharmacological prophylaxis: LMWH Lines/Catheters IV Catheter Type (from Nrsg): Peripheral IV Central line still needed: No Urinary Cath still in place: No Reason Cath still needed: other (indicate) (Incontinence.) Assessment/Plan Assessment/Plan 1. Pet proven lung mass size of almost 10 cm in the apical region of left upper lobe ,demonstrating associated air bronchograms with according to the patient PET scan report there was a lower level of metabolic activity in this process is most consistent with a benign process such mucous plaque causing postobstructive atelectasis versus resolving pneumonia the probability for hypometabolic carcinoma cannot be excluded(according to PET report). 2. PET proven 1.3/0 0.8 cm well-circumscribed bright circumscribed nodular soft tissue attenuation in the left upper lobe abutting the descending thoracic aorta at the level of just below the aortic arch demonstrating maximum SUV of 4.2 this is nonspecific finding which may be malignant or inflammatory. 3.S/P thoracentesis, 10/25/2018; Approximately 1.0 liters of serous fluid was aspirated for moderate sized right pleural effusion. 4. Thickening of the mucosa of the distal esophagus measuring 1.3 cm in t hickness demonstrating maximum SUV of 5.0 without focal mass most likely chronic esophagitis;According to PET scan . 5.0.9 to 0.9 cm left adrenal gland nodule likely an adenoma(According to PET). 6.Hepatomegaly 7.S/P cholecystectomy . 8.Bilateral hemorrhagic renal cysts . 9.Atherosclerotic disease. 10.COPD 11. nicotine addiction with 1 to 1/2 pack smoking more than 50 years until yesterday. History of short period of not smoking couple of months. 12. Morbid obesity 13. Snoring with apnea 14. Dyslipidemia 15. Low back pain 16. The lumbar sacral and cervical radiculopathy 17. Pelvic relaxation with mixed incontinence 18. 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 19. 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 20. Polycythemia 21. Hypothyroidism currently on levothyroxine 75 mcg daily. 22. Incomplete data. Result Diagram: 10/25/18 9760 10/25/18 1555 Results 24hrs Laboratory Tests Test 10/26/18 10:47 Blood Gas Specimen Source Blood arterial Arterial Blood Date Drawn 10/26/2018 12:13:43 PM Arterial Blood pH (Temp corrected) 7.424 Arterial Blood pCO2 (Temp correct) 38.3 Arterial Blood pO2 (Temp corrected) 70.3 L Arterial Blood HCO3 24.5 Arterial Blood Base Excess 0.4 Arterial Blood Oxygen Saturation 94.1 L Thomas Test ACCEPTAB Arterial Blood Gas Puncture Site Right Radial Arterial Blood Carboxyhemoglobin 0.6 Arterial Blood Methemoglobin 0.3 Blood Gas A-a O2 Differential 33.6 H Oxyhemoglobin Percent 93.3 Blood Gas Temperature 37.0 Blood Gas Modality ROOM AIR FiO2 21.0 Blood Gas Notified Whom TM Blood Gas Notified Time 10/26/2018 12:22:34 PM Subjective 24 Hr Interval Summary Free Text/Dictation Dry cough. No hemoptysis. Anxious about cytology results pending. Constitutional: No no complaints, No improved, No chills, No diaphoresis, No disoriented, No febrile, No poor po, No requiring IVF, No requiring O2, No other Eyes: No no complaints, No pain, No discharge, No redness, No visual change, No other ENT: congestion, discharge, sore throat; No no complaints, No bleeding, No pain, No dysphagia, No other Respiratory: cough, shortness of breath; No no complaints, No pain, No pleuritic pain, No sputum, No wheezing, No other Cardiovascular: chest pain, lightheadedness, orthopenea, palpitations; No no complaints, No edema, No paroxysmal nocturnal dyspnea, No other Gastrointestinal: constipation, decreased appetite, passing stool; No no complaints, No pain, No blood, No diarrhea, No flatus, No nausea, No vomiting, No other Genitourinary: dysuria, flank pain; No no complaints, No bleeding, No discharge, No hematuria, No other Musculoskeletal: back pain, bone/joint pain; No no complaints, No neck pain, No restricted range of motion, No swelling, No other Skin: pruritis, rash, skin lesions; No no complaints, No bruising, No erythema, No laceration, No other Neurologic: headache; No no complaints, No confusion, No dizziness, No focal-weakness, No syncope, No seizure, No other Lymphatic: No no complaints, No adenopathy, No tender nodes, No lymphadema, No other Psychological: anxiety; No no complaints, No nl mood/affect, No confusion, No depression, No [place] icidal, No other Immunologic: no complaints, pruritis; No immunodeficiency, No rhinitis, No urticaria, No other Exam/Review of Systems Exam Vitals Vital Signs Date Temp Pulse Resp B/P (MAP) Pulse Ox O2 O2 Flow FiO2 Time Delivery Rate 10/27/18 98.1 78 18 136/63 95 Room Air 07:54 (87) 10/25/18 3.0 23:35 10/25/18 21 19:34 Intake and Output 10/26/18 10/26/18 10/27/18 1515:00 23:00 07:00 IntakeIntake Total 350 ml 900 ml 1000 ml BalanceBalance 350 ml 900 ml 1000 ml Constitutional: alert, oriented, well developed, distress, frail Psych: anxiety; No no complaints, No nl mood/affect, No confusion, No depression, No suicidal, No other Head: normocephalic, atraumatic; No lacerations, No hematomas, No other Eyes: EOMI, nl lids, nl sclera (Erythematous conjunctiva.), PERRL; No nl conjunctiva, No icteric, No fundi, disc, No other ENMT: nl external ears & nose; No nl lips & teeth, No nl nasal mucosa & septum, No mucosa pink and moist, No intubated, No tympanic membranes, No other Neck: jvd, thyromegaly; No supple, No non-tender, No bruits, No masses, No nuchal rigidity, No other Respiratory: congested cough, labored breathing, wheezing; No clear to auscultation, No normal air movement, No crackles/rales, No diminished breath sounds, No intercostal retraction, No respirations, No tactile fremitus, No other Cardiovascular: No regular rate and rhythm, No nl pulses, No bruits, No diastolic murmur, No edema, No gallop, No irregular rhythm, No jugular venous distention (JVD), No murmurs/extra sounds, No rub, No systolic murmur, No S3, No S4, No other Gastrointestinal: soft, nl liver, spleen, bowel sounds, distended; No non-tender, No ascites, No firm, No hepatomegaly, No mass, No rebound or guarding, No splenomegaly, No surgical scars, No tender, No other Genitourinary - Female: nl adnexae, nl external genitalia; No CMT, No CVA tenderness, No uterus, No other Musculoskeletal: joint tenderness, muscle tone, muscle weakness; No nl extremities to inspection, No nl gait and stance, No range of motion, No spine non-tender, No swelling, No other Extremities: normal pulses, pitting pedal edema; No calf tenderness, No cyanosis, No clubbing, No edema, No palpable cord, No tenderness, No other 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, 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; No nl mental status, No nl speech, No nl strength, No DTR's symmetric, No focal weakness, No lethargic, No numbness, No reflexes, No unresponsive, No other Skin: nl turgor; No rash or lesions, No diaphoresis, No ecchymosis, No laceration, No puncture, No other Lymph: nl lymph nodes; No enlarged, No nontender, No other Results Results 24hrs Laboratory Tests Test 10/26/18 10:47 Blood Gas Specimen Source Blood arterial Arterial Blood Date Drawn 10/26/2018 12:13:43 PM Arterial Blood pH (Temp corrected) 7.424 Arterial Blood pCO2 (Temp correct) 38.3 Arterial Blood pO2 (Temp corrected) 70.3 L Arterial Blood HCO3 24.5 Arterial Blood Base Excess 0.4 Arterial Blood Oxygen Saturation 94.1 L Thomas Test ACCEPTAB Arterial Blood Gas Puncture Site Right Radial Arterial Blood Carboxyhemoglobin 0.6 Arterial Blood Methemoglobin 0.3 Blood Gas A-a O2 Differential 33.6 H Oxyhemoglobin Percent 93.3 Blood Gas Temperature 37.0 Blood Gas Modality ROOM AIR FiO2 21.0 Blood Gas Notified Whom TM Blood Gas Notified Time 10/26/2018 12:22:34 PM Medications Medication Current Medications Clonidine (Catapres) 0.1 mg BID PO Last administered on 10/27/18at 09:14; Admin Dose 0.1 MG; Start 10/26/18 at 09:00 Levothyroxine Sodium (Synthroid) 75 mcg BEFORE BREAKFAST PO Last administered on 10/27/18at 06:00; Admin Dose 75 MCG; Start 10/26/18 at 07:00 Losartan Potassium (Cozaar) 50 mg DAILY PO Last administered on 10/27/18 09:13; Admin Dose 50 MG; Start 10/26/18 at 09:00 Albuterol/ Ipratropium (Duoneb) 3 ml Q8H RESP THERAPY PRN HHN SHORTNESS OF BREATH; Start 10/26/18 at 01:30 Acetaminophen (Tylenol Tab) 500 mg Q8 PRN PO MILD PAIN(1-3)OR ELEVATED TEMP Last administered on 10/26/18 06:53; Admin Dose 500 MG; Start 10/26/18 at 01:30 Pantoprazole (Protonix Tab) 40 mg DAILY@06 PO Last administered on 10/27/18 06:00; Admin Dose 40 MG; Start 10/26/18 at 06:00 Metoprolol Tartrate (Lopressor) 25 mg BID PO Last administered on 10/27/18 09:14; Admin Dose 25 MG; Start 10/26/18 at 09:00 Zolpidem Tartrate (Ambien) 5 mg HS PRN PO INSOMNIA; Start 10/26/18 at 01:30 Nicotine (Nicoderm 21 Mg/ 24hr) 1 patch DAILY TRANSDERM Last administered on 10/27/18 09:20; Admin Dose 1 PATCH; Start 10/26/18 at 09:00 Ferric Sodium Gluconate Complex 125 mg/Sodium Chloride 100 ml @ 100 mls/hr DAILY@1300 IVPB Last administered on 10/26/18 13:54; Admin Dose 100 MLS/HR; Start 10/26/18 at 13:00; Stop 10/28/18 at 13:59 Azithromycin 250 ml @ 250 mls/hr Q24H IVPB Last administered on 10/26/18 12:21; Admin Dose 250 MLS/HR; Start 10/26/18 at 12:00; Stop 10/28/18 at 11:59 MAGDA JOSÉ MD Oct 27, 2018 10:09
--- NOTE | 2018-10-27 10:20 | CONS ---
Assessment/Plan Assessment/Plan Hospital Course (Demo Recall) Dyspnea: likely from underlying pleural effusion +/- COPD exacerbation. EF preserved and no CHF by exam Left pleural effusion: likely malignant Left lung mass COPD HTN Tobacco abuse -continue metoprolol 25mg BID, losartan 50mg, clonidine 0.1mg BID -await surgical eval Consultation Date/Type/Reason Admit Date/Time Oct 25, 2018 at 16:08 Initial Consult Date 10/26/18 Type of Consult Cardiology Requesting Provider: MAGDA JOSÉ MD Date/Time of Note DATE: 10/27/18 TIME: 10:17 24 HR Interval Summary Free Text/Dictation No events. No SOB. Exam/Review of Systems Vital Signs Vitals Vital Signs Date Temp Pulse Resp B/P (MAP) Pulse Ox O2 O2 Flow FiO2 Time Delivery Rate 10/27/18 98.1 78 18 136/63 95 Room Air 07:54 (87) 10/25/18 3.0 23:35 10/25/18 21 19:34 Intake and Output 10/26/18 10/26/18 10/27/18 1515:00 23:00 07:00 IntakeIntake Total 350 ml 900 ml 1000 ml BalanceBalance 350 ml 900 ml 1000 ml Exam Constitutional: alert, oriented Psych: no complaints, nl mood/affect Head: normocephalic, atraumatic Neck: supple; No jvd Respiratory: diminished breath sounds (left base); No clear to auscultation Cardiovascular: regular rate and rhythm; No edema, No systolic murmur Gastrointestinal: soft, non-tender; No distended Neurological: nl mental status, nl speech Labs Result Diagram: 10/25/18 1555 10/25/18 1555 Results 24hrs Laboratory Tests Test 10/26/18 10:47 Blood Gas Specimen Source Blood arterial Arterial Blood Date Drawn 10/26/2018 12:13:43 PM Arterial Blood pH (Temp corrected) 7.424 Arterial Blood pCO2 (Temp correct) 38.3 Arterial Blood pO2 (Temp corrected) 70.3 L Arterial Blood HCO3 24.5 Arterial Blood Base Excess 0.4 Arterial Blood Oxygen Saturation 94.1 L Thomas Test ACCEPTAB Arterial Blood Gas Puncture Site Right Radial Arterial Blood Carboxyhemoglobin 0.6 Arterial Blood Methemoglobin 0.3 Blood Gas A-a O2 Differential 33.6 H Oxyhemoglobin Percent 93.3 Blood Gas Temperature 37.0 Blood Gas Modality ROOM AIR FiO2 21.0 Blood Gas Notified Whom TM Blood Gas Notified Time 10/26/2018 12:22:34 PM Medications Medications Current Medications Clonidine (Catapres) 0.1 mg BID PO Last administered on 10/27/18 09:14; Admin Dose 0.1 MG; Start 10/26/18 at 09:00 Levothyroxine Sodium (Synthroid) 75 mcg BEFORE BREAKFAST PO Last administered on 10/27/18 06:00; Admin Dose 75 MCG; Start 10/26/18 at 07:00 Losartan Potassium (Cozaar) 50 mg DAILY PO Last administered on 10/27/18 09:13; Admin Dose 50 MG; Start 10/26/18 at 09:00 Albuterol/ Ipratropium (Duoneb) 3 ml Q8H RESP THERAPY PRN HHN SHORTNESS OF BREATH; Start 10/26/18 at 01:30 Acetaminophen (Tylenol Tab) 500 mg Q8 PRN PO MILD PAIN(1-3)OR ELEVATED TEMP Last administered on 10/26/18 06:53; Admin Dose 500 MG; Start 10/26/18 at 01:30 Pantoprazole (Protonix Tab) 40 mg DAILY@06 PO Last administered on 10/27/18 06:00; Admin Dose 40 MG; Start 10/26/18 at 06:00 Metoprolol Tartrate (Lopressor) 25 mg BID PO Last administered on 10/27/18 09:14; Admin Dose 25 MG; Start 10/26/18 at 09:00 Zolpidem Tartrate (Ambien) 5 mg HS PRN PO INSOMNIA; Start 10/26/18 at 01:30 Nicotine (Nicoderm 21 Mg/ 24hr) 1 patch DAILY TRANSDERM Last administered on 10/27/18 09:20; Admin Dose 1 PATCH; Start 10/26/18 at 09:00 Ferric Sodium Gluconate Complex 125 mg/Sodium Chloride 100 ml @ 100 mls/hr DAILY@1300 IVPB Last administered on 10/26/18 13:54; Admin Dose 100 MLS/HR; Start 10/26/18 at 13:00; Stop 10/28/18 at 13:59 Azithromycin 250 ml @ 250 mls/hr Q24H IVPB Last administered on 4/24/19at 12:21; Admin Dose 250 MLS/HR; Start 10/26/18 at 12:00; Stop 10/28/18 at 11:59 JOSE ROBERTO CROCKETT Oct 27, 2018 10:20
--- NOTE | 2018-10-27 11:33 | CONS ---
Consult Date/Type/Reason Admit Date/Time Oct 25, 2018 at 16:08 Initial Consult Date 10/26/18 Type of Consult Pulmonary Requesting Provider: MAGDA JOSÉ MD Date/Time of Note DATE: 10/27/18 TIME: 11:31 Subjective Patient reports morning still has occasional cough. Objective Vital Signs Date Temp Pulse Resp B/P (MAP) Pulse Ox O2 O2 Flow FiO2 Time Delivery Rate 10/27/18 98.1 78 18 136/63 95 Room Air 07:54 (87) 10/25/18 3.0 23:35 10/25/18 21 19:34 Intake and Output 10/26/18 10/26/18 10/27/18 1515:00 23:00 07:00 IntakeIntake Total 350 ml 900 ml 1000 ml BalanceBalance 350 ml 900 ml 1000 ml Exam PHYSICAL EXAMINATION: GENERAL: Moderately obese lady, appears comfortable at rest, in no acute distress. VITAL SIGNS: NECK: Supple. No JVD or lymphadenopathy. CARDIAC: S1, S2. No added sounds or murmurs. CHEST: Diminished air entry bilaterally. ABDOMEN: Soft, nontender. No guarding or rebound. EXTREMITIES: No cyanosis, clubbing, edema. NEUROLOGIC: Generalized weakness. Vent Setting Fraction of Inspired Oxygen pe: 21 Results/Medications Result Diagram: 10/25/18 1555 10/25/18 1555 Medications Current Medications Clonidine (Catapres) 0.1 mg BID PO Last administered on 10/27/18at 09:14; Admin Dose 0.1 MG; Start 10/26/18 at 09:00 Levothyroxine Sodium (Synthroid) 75 mcg BEFORE BREAKFAST PO Last administered on 10/27/18at 06:00; Admin Dose 75 MCG; Start 10/26/18 at 07:00 Losartan Potassium (Cozaar) 50 mg DAILY PO Last administered on 10/27/18at 09:13; Admin Dose 50 MG; Start 10/26/18 at 09:00 Albuterol/ Ipratropium (Duoneb) 3 ml Q8H RESP THERAPY PRN HHN SHORTNESS OF BREATH; Start 10/26/18 at 01:30 Acetaminophen (Tylenol Tab) 500 mg Q8 PRN PO MILD PAIN(1-3)OR ELEVATED TEMP Last administered on 10/26/18at 06:53; Admin Dose 500 MG; Start 10/26/18 at 01:30 Pantoprazole (Protonix Tab) 40 mg DAILY@06 PO Last administered on 10/27/18at 06:00; Admin Dose 40 MG; Start 10/26/18 at 06:00 Metoprolol Tartrate (Lopressor) 25 mg BID PO Last administered on 10/27/18at 09:14; Admin Dose 25 MG; Start 10/26/18 at 09:00 Zolpidem Tartrate (Ambien) 5 mg HS PRN PO INSOMNIA; Start 10/26/18 at 01:30 Nicotine (Nicoderm 21 Mg/ 24hr) 1 patch DAILY TRANSDERM Last administered on 10/27/18at 09:20; Admin Dose 1 PATCH; Start 10/26/18 at 09:00 Ferric Sodium Gluconate Complex 125 mg/Sodium Chloride 100 ml @ 100 mls/hr DAILY@1300 IVPB Last administered on 10/26/18at 13:54; Admin Dose 100 MLS/HR; Start 10/26/18 at 13:00; Stop 10/28/18 at 13:59 Azithromycin 250 ml @ 250 mls/hr Q24H IVPB Last administered on 10/26/18at 12:21; Admin Dose 250 MLS/HR; Start 10/26/18 at 12:00; Stop 10/28/18 at 11:59 Assessment/Plan Hospital Course (Demo Recall) Assessment 1. 68-year-old lady with extensive tobacco history moderate left pleural effusion which is exudative in nature concerning for malignancy. She has a hi story of PET positive left upper lobe lesion consistent with primary bronchogenic carcinoma. 2. Extensive tobacco history Recommendations 1. Await cytology 2. Hematology oncology recommendations 3. Thoracic surgery evaluation however if cytology positive for malignancy patient is unlikely surgical candidate Discussed with primary team and family at bedside JULIO CÉSAR ELIZONDO MD, [facility] Oct 27, 2018 11:33
[2018-10-27] MEDS: AZITHROMYCIN 500MG/NS (PMX) 250 ML IVPB SCH (12:37)
[2018-10-27 14:39] VITALS: BP 124/81; PULSE 77; RESP 19
[2018-10-27] MEDS: SOD FERRIC GLUC COMPLX 125 MG in SOD CHLORIDE 0.9% 100 ML IVPB SCH (14:53)
--- NOTE | 2018-10-27 19:22 | PN ---
Date/Time of Note Date/Time of Note DATE: 10/27/18 TIME: 19:20 Assessment/Plan Lines/Catheters IV Catheter Type (from [facility]): Saline Lock [place] in Place (from [facility]): No Assessment/Plan Assessment/Plan 68 year old female with extensive tobacco history and moderate left pleural effusion with large 10cm PET left lung lesion(I do not have access to films). It appears she also has other lesions and or mediastinal adenopathy. At this time she does not appear to be a surgical candidate. I would recommend IR do needle biopsy of large mass to obtain diagnosis. Exam/Review of Systems Vital Signs Vitals Vital Signs Date Temp Pulse Resp B/P (MAP) Pulse Ox O2 O2 Flow FiO2 Time Delivery Rate 10/27/18 97.6 77 19 124/81 96 Room Air 14:39 (95) 10/25/18 3.0 23:35 10/25/18 21 19:34 Intake and Output 10/26/18 10/26/18 10/27/18 1515:00 23:00 07:00 IntakeIntake Total 350 ml 900 ml 1000 ml BalanceBalance 350 ml 900 ml 1000 ml Results Result Diagram: 10/25/18 1555 10/25/18 1555 MAGAN MILLER MD Oct 27, 2018 19:22
[2018-10-27 20:34] VITALS: BP 125/56; PULSE 81; RESP 20
[2018-10-28] MEDS: PANTOPRAZOLE (EC) 40 MG TAB PO SCH (06:16)
[2018-10-28] MEDS: LEVOTHYROXINE 75 MCG TAB PO SCH (06:16)
[2018-10-28 08:27] VITALS: BP 136/61; PULSE 75; RESP 20
[2018-10-28] MEDS: LOSARTAN 50 MG TAB PO SCH (08:35)
[2018-10-28] MEDS: METOPROLOL 25 MG TAB PO SCH (08:36)
[2018-10-28] MEDS: NICOTINE (21 MG/24 HR) PATCH TRANSDERM SCH (08:37)
--- NOTE | 2018-10-28 09:09 | CONS ---
Assessment/Plan Assessment/Plan Hospital Course (Demo Recall) 68 yo female Interval Hx: No c/o abdominal pain or nausea. No dysphagia 1. Lung mass. 2. Chronic obstructive pulmonary disease. 3. Nicotine usage. 4. Status post cholecystectomy. 5. Hyperlipidemia. 6. Obesity. 7. Obstructive sleep apnea. 8. Thickening of the distal part of the esophagus, mostly related to esophagitis. 9. Hypothyroidism. 10. Status post thoracocentesis -cytology negative for malignant cells. PLAN: Continue present care Pt examined and plan of care discussed with Dr. Molina Consultation Date/Type/Reason Admit Date/Time Oct 25, 2018 at 16:08 Initial Consult Date 10/26/18 Requesting Provider: MAGDA JOSÉ MD Date/Time of Note DATE: 10/28/18 TIME: 09:03 Exam/Review of Systems Exam Vitals Vital Signs Date Temp Pulse Resp B/P (MAP) Pulse Ox O2 O2 Flow FiO2 Time Delivery Rate 10/28/18 98.0 75 20 136/61 97 Room Air 08:27 (86) 10/25/18 3.0 23:35 10/25/18 21 19:34 Intake and Output 10/27/18 10/27/18 10/28/18 1515:00 23:00 07:00 IntakeIntake Total 600 ml 550 ml BalanceBalance 600 ml 550 ml Constitutional: alert, oriented Psych: no complaints Head: normocephalic Eyes: PERRL ENMT: mucosa pink and moist Respiratory: normal air movement Cardiovascular: regular rate and rhythm Gastrointestinal: soft, non-tender Neurological: nl mental status Results Result Diagram: 10/25/18 1555 10/28/18 0631 Results 24hrs Laboratory Tests Test 10/28/18 06:31 Sodium Level 145 H Potassium Level 4.0 Chloride Level 111 H Carbon Dioxide Level 28 Anion Gap 6 Blood Urea Nitrogen 14 Creatinine 0.75 Est Glomerular Filtrat Rate mL/min > 60 Glucose Level 102 Calcium Level 9.6 Total Bilirubin 0.2 Direct Bilirubin 0.00 Indirect Bilirubin 0.2 Aspartate Amino Transf (AST/SGOT) 14 L Alanine Aminotransferase (ALT/SGPT) 13 Alkaline Phosphatase 70 Total Protein 6.7 Albumin 3.5 Globulin 3.20 Albumin/Globulin Ratio 1.09 Medications Medication Current Medications Clonidine (Catapres) 0.1 mg BID PO Last administered on 10/28/18 08:36; Admin Dose 0.1 MG; Start 10/26/18 at 09:00 Levothyroxine Sodium (Synthroid) 75 mcg BEFORE BREAKFAST PO Last administered on 10/28/18 06:16; Admin Dose 75 MCG; Start 10/26/18 at 07:00 Losartan Potassium (Cozaar) 50 mg DAILY PO Last administered on 10/28/18 08:35; Admin Dose 50 MG; Start 10/26/18 at 09:00 Albuterol/ Ipratropium (Duoneb) 3 ml Q8H RESP THERAPY PRN HHN SHORTNESS OF BREATH; Start 10/26/18 at 01:30 Acetaminophen (Tylenol Tab) 500 mg Q8 PRN PO MILD PAIN(1-3)OR ELEVATED TEMP Last administered on 10/26/18 06:53; Admin Dose 500 MG; Start 10/26/18 at 01:30 Pantoprazole (Protonix Tab) 40 mg DAILY@06 PO Last administered on 10/28/18 06:16; Admin Dose 40 MG; Start 10/26/18 at 06:00 Metoprolol Tartrate (Lopressor) 25 mg BID PO Last administered on 10/28/18 08:36; Admin Dose 25 MG; Start 10/26/18 at 09:00 Zolpidem Tartrate (Ambien) 5 mg HS PRN PO INSOMNIA; Start 10/26/18 at 01:30 Nicotine (Nicoderm 21 Mg/ 24hr) 1 patch DAILY TRANSDERM Last administered on 10/28/18 08:37; Admin Dose 1 PATCH; Start 10/26/18 at 09:00 Ferric Sodium Gluconate Complex 125 mg/Sodium Chloride 100 ml @ 100 mls/hr DA STEFAN@1300 IVPB Last administered on 10/27/18 14:53; Admin Dose 100 MLS/HR; Start 10/26/18 at 13:00; Stop 10/28/18 at 13:59 Azithromycin 250 ml @ 250 mls/hr Q24H IVPB Last administered on 10/27/18 12:37; Admin Dose 250 MLS/HR; Start 10/26/18 at 12:00; Stop 10/28/18 at 11:59 CAMERON MURILLO Oct 28, 2018 09:09
--- NOTE | 2018-10-28 09:35 | PN ---
Date/Time of Note Date/Time of Note DATE: 10/28/18 TIME: 09:34 Assessment/Plan VTE Prophylaxis Risk score (from Nsg)>0 risk: 4 SCD applied (from Ns): No SCD contraindicated: low risk/ambulating, other (she is walking.) Pharmacological prophylaxis: other (no) Lines/Catheters IV Catheter Type (from Nrs): Saline Lock Central line still needed: No Urinary Cath still in place: No Reason Cath still needed: other (indicate) (incontinence.) Assessment/Plan Assessment/Plan 1. Pet proven lung mass size of almost 10 cm in the apical region of left upper lobe ,demonstrating associated air bronchograms with according to the patient PET scan report there was a lower level of metabolic activity in this process is most consistent with a benign process such mucous plaque causing postobstructive atelectasis versus resolving pneumonia the probability for hypometabolic carcinoma cannot be excluded(according to PET report). 2. PET proven 1.3/0 0.8 cm well-circumscribed bright circumscribed nodular soft tissue attenuation in the left upper lobe abutting the descending thoracic aorta at the level of just below the aortic arch demonstrating maximum SUV of 4.2 this is nonspecific finding which may be malignant or inflammatory. 3.S/P thoracentesis, 10/25/2018; Approximately 1.0 liters of serous fluid was aspirated for moderate sized right pleural effusion. Got the report from pathology that no malignant cells in the cytology fluid was identified. This is not excluding fully the presence of malignant disease which is highly probable on my opinion further work-up in conclusion by cardiothoracic surgeon. 4. Thickening of the mucosa of the distal esophagus measuring 1.3 cm in thickness demonstrating maximum SUV of 5.0 without focal mass most likely chronic esophagitis;According to PET scan . 5.0.9 to 0.9 cm left adrenal gland nodule likely an adenoma(According to PET). 6.Hepatomegaly 7.S/P cholecystectomy . 8.Bilateral hemorrhagic renal cysts . 9.Atherosclerotic disease. 10.COPD 11. nicotine addiction with 1 to 1/2 pack smoking more than 50 years until yesterday. History of short period of not smoking couple of months. 12. Morbid obesity 13. Snoring with apnea 14. Dyslipidemia 15. Low back pain 16. The lumbar sacral and cervical radiculopathy 17. Pelvic relaxation with mixed incontinence 18. 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 19. 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 20. Polycythemia 21. Hypothyroidism currently on levothyroxine 75 mcg daily. 22. Incomplete data. Result Diagram: 10/25/18 1555 10/28/18 0631 Results 24hrs Laboratory Tests Test 10/28/18 06:31 Sodium Level 145 H Potassium Level 4.0 Chloride Level 111 H Carbon Dioxide Level 28 Anion Gap 6 Blood Urea Nitrogen 14 Creatinine 0.75 Est Glomerular Filtrat Rate mL/min > 60 Glucose Level 102 Calcium Level 9.6 Total Bilirubin 0.2 Direct Bilirubin 0.00 Indirect Bilirubin 0.2 Aspartate Amino Transf (AST/SGOT) 14 L Alanine Aminotransferase (ALT/SGPT) 13 Alkaline Phosphatase 70 Total Protein 6.7 Albumin 3.5 Globulin 3.20 Albumin/Globulin Ratio 1.09 Exam/Review of Systems Exam Vitals Vital Signs Date Temp Pulse Resp B/P (MAP) Pulse Ox O2 O2 Flow FiO2 Time Delivery Rate 10/28/18 98.0 75 20 136/61 97 Room Air 08:27 (86) 10/25/18 3.0 23:35 10/25/18 21 19:34 Intake and Output 10/27/18 10/27/18 10/28/18 1414:59 22:59 06:59 IntakeIntake Total 600 ml 550 ml BalanceBalance 600 ml 550 ml Results Results 24hrs Laboratory Tests Test 10/28/18 06:31 Sodium Level 145 H Potassium Level 4.0 Chloride Level 111 H Carbon Dioxide Level 28 Anion Gap 6 Blood Urea Nitrogen 14 Creatinine 0.75 Est Glomerular Filtrat Rate mL/min > 60 Glucose Level 102 Calcium Level 9.6 Total Bilirubin 0.2 Direct Bilirubin 0.00 Indirect Bilirubin 0.2 Aspartate Amino Transf (AST/SGOT) 14 L Alanine Aminotransferase (ALT/SGPT) 13 Alkaline Phosphatase 70 Total Protein 6.7 Albumin 3.5 Globulin 3.20 Albumin/Globulin Ratio 1.09 Medications Medication Current Medications Clonidine (Catapres) 0.1 mg BID PO Last administered on 10/28/18at 08:36; Admin Dose 0.1 MG; Start 10/26/18 at 09:00 Levothyroxine Sodium (Synthroid) 75 mcg BEFORE BREAKFAST PO Last administered on 10/28/18at 06:16; Admin Dose 75 MCG; Start 10/26/18 at 07:00 Losartan Potassium (Cozaar) 50 mg DAILY PO Last administered on 10/28/18 08:35; Admin Dose 50 MG; Start 10/26/18 at 09:00 Albuterol/ Ipratropium (Duoneb) 3 ml Q8H RESP THERAPY PRN HHN SHORTNESS OF BREATH; Start 10/26/18 at 01:30 Acetaminophen (Tylenol Tab) 500 mg Q8 PRN PO MILD PAIN(1-3)OR ELEVATED TEMP Last administered on 10/26/18 06:53; Admin Dose 500 MG; Start 10/26/18 at 01:30 Pantoprazole (Protonix Tab) 40 mg DAILY@06 PO Last administered on 10/28/18 06:16; Admin Dose 40 MG; Start 10/26/18 at 06:00 Metoprolol Tartrate (Lopressor) 25 mg BID PO Last administered on 10/28/18 08:36; Admin Dose 25 MG; Start 10/26/18 at 09:00 Zolpidem Tartrate (Ambien) 5 mg HS PRN PO INSOMNIA; Start 10/26/18 at 01:30 Nicotine (Nicoderm 21 Mg/ 24hr) 1 patch DAILY TRANSDERM Last administered on 08:37; Admin Dose 1 PATCH; Start 10/26/18 at 09:00 Ferric Sodium Gluconate Complex 125 mg/Sodium Chloride 100 ml @ 100 mls/hr DAILY@1300 IVPB Last administered on 10/27/18 14:53; Admin Dose 100 MLS/HR; Start 10/26/18 at 13:00; Stop 10/28/18 at 13:59 Azithromycin 250 ml @ 250 mls/hr Q24H IVPB Last administered on 10/27/18at 12:37; Admin Dose 250 MLS/HR; Start 10/26/18 at 12:00; Stop 10/28/18 at 11:59 MAGDA JOSÉ MD Oct 28, 2018 09:35
--- NOTE | 2018-10-28 11:28 | CONS ---
Assessment/Plan Assessment/Plan Hospital Course (Demo Recall) Dyspnea: likely from underlying pleural effusion +/- COPD exacerbation. EF preserved and no CHF by exam Left pleural effusion: likely malignant Left lung mass: plan for biopsy COPD HTN Tobacco abuse -continue metoprolol 25mg BID, losartan 50mg, clonidine 0.1mg BID -await IR biopsy. Ok from cardiac perspective Consultation Date/Type/Reason Admit Date/Time Oct 25, 2018 at 16:08 Initial Consult Date 10/26/18 Type of Consult Cardiology Requesting Provider: MAGDA JOSÉ MD Date/Time of Note DATE: 10/28/18 TIME: 11:27 24 HR Interval Summary Free Text/Dictation No events. Plan for IR biopsy. Pt tearful Exam/Review of Systems Vital Signs Vitals Vital Signs Date Temp Pulse Resp B/P (MAP) Pulse Ox O2 O2 Flow FiO2 Time Delivery Rate 10/28/18 98.0 75 20 136/61 97 Room Air 08:27 (86) 10/25/18 3.0 23:35 10/25/18 21 19:34 Intake and Output 10/27/18 10/27/18 10/28/18 1515:00 23:00 07:00 IntakeIntake Total 600 ml 550 ml BalanceBalance 600 ml 550 ml Exam Constitutional: alert, oriented Neck: supple; No jvd Respiratory: diminished breath sounds (left base); No clear to auscultation Cardiovascular: regular rate and rhythm; No edema Gastrointestinal: soft, non-tender; No distended Neurological: nl mental status, nl speech Labs Result Diagram: 10/25/18 1555 10/28/18 0631 Results 24hrs Laboratory Tests Test 10/28/18 06:31 Sodium Level 145 H Potassium Level 4.0 Chloride Level 111 H Carbon Dioxide Level 28 Anion Gap 6 Blood Urea Nitrogen 14 Creatinine 0.75 Est Glomerular Filtrat Rate mL/min > 60 Glucose Level 102 Calcium Level 9.6 Total Bilirubin 0.2 Direct Bilirubin 0.00 Indirect Bilirubin 0.2 Aspartate Amino Transf (AST/SGOT) 14 L Alanine Aminotransferase (ALT/SGPT) 13 Alkaline Phosphatase 70 Total Protein 6.7 Albumin 3.5 Globulin 3.20 Albumin/Globulin Ratio 1.09 Medications Medications Current Medications Clonidine (Catapres) 0.1 mg BID PO Last administered on 10/28/18at 08:36; Admin Dose 0.1 MG; Start 4/24/19 at 09:00 Levothyroxine Sodium (Synthroid) 75 mcg BEFORE BREAKFAST PO Last administered on 10/28/18 06:16; Admin Dose 75 MCG; Start 10/26/18 at 07:00 Losartan Potassium (Cozaar) 50 mg DAILY PO Last administered on 10/28/18 08:35; Admin Dose 50 MG; Start 10/26/18 at 09:00 Albuterol/ Ipratropium (Duoneb) 3 ml Q8H RESP THERAPY PRN HHN SHORTNESS OF BREATH; Start 10/26/18 at 01:30 Acetaminophen (Tylenol Tab) 500 mg Q8 PRN PO MILD PAIN(1-3)OR ELEVATED TEMP Last administered on 10/26/18 06:53; Admin Dose 500 MG; Start 10/26/18 at 01:30 Pantoprazole (Protonix Tab) 40 mg DAILY@06 PO Last administered on 10/28/18 06:16; Admin Dose 40 MG; Start 10/26/18 at 06:00 Metoprolol Tartrate (Lopressor) 25 mg BID PO Last administered on 10/28/18 08:36; Admin Dose 25 MG; Start 10/26/18 at 09:00 Zolpidem Tartrate (Ambien) 5 mg HS PRN PO INSOMNIA; Start 10/26/18 at 01:30 Nicotine (Nicoderm 21 Mg/ 24hr) 1 patch DAILY TRANSDERM Last administered on 10/28/18 08:37; Admin Dose 1 PATCH; Start 10/26/18 at 09:00 Ferric Sodium Gluconate Complex 125 mg/Sodium Chloride 100 ml @ 100 mls/hr DAILY@1300 IVPB Last administered on 10/27/18 14:53; Admin Dose 100 MLS/HR; Start 10/26/18 at 13:00; Stop 10/28/18 at 13:59 Azithromycin 250 ml @ 250 mls/hr Q24H IVPB Last administered on 10/27/18 12:37; Admin Dose 250 MLS/HR; Start 10/26/18 at 12:00; Stop 10/28/18 at 11:59 JOSE ROBERTO CROCKETT Oct 28, 2018 11:28
--- NOTE | 2018-10-28 11:55 | CONS ---
Consult Date/Type/Reason Admit Date/Time Oct 25, 2018 at 16:08 Initial Consult Date 10/26/18 Type of Consult Pulmonary Requesting Provider: MAGDA JOSÉ MD Date/Time of Note DATE: 10/28/18 TIME: 11:50 Subjective Patient comfortable this morning still has occasional cough. Objective Vital Signs Date Temp Pulse Resp B/P (MAP) Pulse Ox O2 O2 Flow FiO2 Time Delivery Rate 10/28/18 98.0 75 20 136/61 97 Room Air 08:27 (86) 10/25/18 3.0 23:35 10/25/18 21 19:34 Intake and Output 10/27/18 10/27/18 10/28/18 1515:00 23:00 07:00 IntakeIntake Total 600 ml 550 ml BalanceBalance 600 ml 550 ml Exam GENERAL: Well-nourished well-developed lady comfortable at rest VITAL SIGNS: per chart NECK: Supple. No JVD or lymphadenopathy. CARDIAC EXAM: S1, S2. No added sounds or murmurs. CHEST: Diminished air entry left base ABDOMEN: Soft, nontender. No guarding or rebound. EXTREMITIES: No cyanosis, clubbing or edema. NEUROLOGIC: Generalized weakness. No focal deficits. Vent Setting Fraction of Inspired Oxygen pe: 21 Results/Medications Result Diagram: 10/25/18 1555 10/28/18 0631 Results 24 hrs Laboratory Tests Test 10/28/18 06:31 Sodium Level 145 H Potassium Level 4.0 Chloride Level 111 H Carbon Dioxide Level 28 Anion Gap 6 Blood Urea Nitrogen 14 Creatinine 0.75 Est Glomerular Filtrat Rate mL/min > 60 Glucose Level 102 Calcium Level 9.6 Total Bilirubin 0.2 Direct Bilirubin 0.00 Indirect Bilirubin 0.2 Aspartate Amino Transf (AST/SGOT) 14 L Alanine Aminotransferase (ALT/SGPT) 13 Alkaline Phosphatase 70 Total Protein 6.7 Albumin 3.5 Globulin 3.20 Albumin/Globulin Ratio 1.09 Medications Current Medications Clonidine (Catapres) 0.1 mg BID PO Last administered on 10/28/18at 08:36; Admin Dose 0.1 MG; Start 10/26/18 at 09:00 Levothyroxine Sodium (Synthroid) 75 mcg BEFORE BREAKFAST PO Last administered on 10/28/18at 06:16; Admin Dose 75 MCG; Start 10/26/18 at 07:00 Losartan Potassium (Cozaar) 50 mg DAILY PO Last administered on 10/28/18 08:35; Admin Dose 50 MG; Start 10/26/18 at 09:00 Albuterol/ Ipratropium (Duoneb) 3 ml Q8H RESP THERAPY PRN HHN SHORTNESS OF BREATH; Start 10/26/18 at 01:30 Acetaminophen (Tylenol Tab) 500 mg Q8 PRN PO MILD PAIN(1-3)OR ELEVATED TEMP Last administered on 10/26/18at 06:53; Admin Dose 500 MG; Start 10/26/18 at 01:30 Pantoprazole (Protonix Tab) 40 mg DAILY@06 PO Last administered on 10/28/18at 06:16; Admin Dose 40 MG; Start 10/26/18 at 06:00 Metoprolol Tartrate (Lopressor) 25 mg BID PO Last administered on 10/28/18at 08:36; Admin Dose 25 MG; Start 10/26/18 at 09:00 Zolpidem Tartrate (Ambien) 5 mg HS PRN PO INSOMNIA; Start 10/26/18 at 01:30 Nicotine (Nicoderm 21 Mg/ 24hr) 1 patch DAILY TRANSDERM Last administered on 10/28/18at 08:37; Admin Dose 1 PATCH; Start 10/26/18 at 09:00 Ferric Sodium Gluconate Complex 125 mg/Sodium Chloride 100 ml @ 100 mls/hr DAILY@1300 IVPB Last administered on 10/27/18at 14:53; Admin Dose 100 MLS/HR; Start 10/26/18 at 13:00; Stop 10/28/18 at 13:59 Azithromycin 250 ml @ 250 mls/hr Q24H IVPB Last administered on 10/27/18at 12:37; Admin Dose 250 MLS/HR; Start 10/26/18 at 12:00; Stop 10/28/18 at 11:59 Assessment/Plan Hospital Course (Demo Recall) Assessment 1. 68-year-old lady with extensive tobacco history moderate left pleural effusion which is exudative in nature concerning for malignancy. She has a history of PET positive left upper lobe lesion consistent with primary bronchogenic carcinoma. 2. Extensive tobacco history Recommendations 1. Pleural fluid cytology negative. Discussed with thoracic surgery will order CT-guided biopsy 2. Hematology oncology recommendations 3. If unable to perform CT-guided biopsy will attempt bronchoscopy JULIO CÉSAR ELIZONDO MD, [facility] Oct 28, 2018 11:55
[2018-10-28] MEDS: SOD FERRIC GLUC COMPLX 125 MG in SOD CHLORIDE 0.9% 100 ML IVPB SCH (12:53)
--- NOTE | 2018-11-01 14:36 | PDOCDIS ---
Discharge Instructions DIAGNOSIS Discharge Diagnosis 1. Pet proven lung mass size of almost 10 cm in the apical region of left upper lobe ,demonstrating associated air bronchograms with according to the patient PET scan report there was a lower level of metabolic activity in this process is most consistent with a benign process such mucous plaque causing postobstructive atelectasis versus resolving pneumonia the probability for hypometabolic carcinoma cannot be excluded(according to PET report). Incomplete evaluation. Continue work-up as an outpatient. 2. PET proven 1.3/0 0.8 cm well-circumscribed bright circumscribed nodular soft tissue attenuation in the left upper lobe abutting the descending thoracic aorta at the level of just below the aortic arch demonstrating maximum SUV of 4.2 this is nonspecific finding which may be malignant or inflammatory. 3.S/P thoracentesis, 10/25/2018; Approximately 1.0 liters of serous fluid was aspirated for moderate sized right pleural effusion. Got the report from pathology that no malignant cells in the cytology fluid was identified. This is not excluding fully the presence of malignant disease which is highly probable on my opinion further work-up in conclusion by cardiothoracic surgeon. 4. Thickening of the mucosa of the distal esophagus measuring 1.3 cm in thickness demonstrating maximum SUV of 5.0 without focal mass most likely chronic esophagitis;According to PET scan . 5.0.9 to 0.9 cm left adrenal gland nodule likely an adenoma(According to PET). 6.Hepatomegaly 7.S/P cholecystectomy . 8.Bilateral hemorrhagic renal cysts . 9.Atherosclerotic disease. 10.COPD 11. nicotine addiction with 1 to 1/2 pack smoking more than 50 years until yesterday. History of short period of not smoking couple of months. 12. Morbid obesity 13. Snoring with apnea 14. Dyslipidemia 15. Low back pain 16. The lumbar sacral and cervical radiculopathy 17. Pelvic relaxation with mixed incontinence 18. 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 19. 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 20. Polycythemia 21. Hypothyroidism currently on levothyroxine 75 mcg daily. 22. Incomplete data. CONDITION [id number] Patient Condition: [id number] Guarded HOME CARE INSTRUCTIONS: [id number] Diet Instructions: [id number] Reduced Calorie ACTIVITY: [id number] Activity Restrictions: [id number] Slowly Increase Activity [id number] Bathing Restrictions: [id number] Shower FOLLOW UP/APPOINTMENTS Follow-up Plan In [address] José. In [address] Arguello In 10 days with . SCHOOL/WORK RELEASE May return to School/Work with: No Restrictions MAGDA JOSÉ MD Nov 01, 2018 14:36
== END 2018-10-28 13:25 | disposition home or self-care (01) | DRG 187 ==
LOC: E/R 14:13 → PP2 16:08 → CANRESERV 22:24
PROVIDERS: ADMIT Family Medicine; ATTEND Family Medicine
PROC: 0W9B3ZZ Drainage of Left Pleural Cavity, Percutaneous Approach (ICD-10-PCS; principal; 2018-10-25)
DX: J90 Pleural effusion, not elsewhere classified (principal); C34.12 Malignant neoplasm of upper lobe, left bronchus or lung; E66.2 Morbid (severe) obesity with alveolar hypoventilation; J44.1 Chronic obstructive pulmonary disease with (acute) exacerbation; D75.1 Secondary polycythemia; E03.9 Hypothyroidism, unspecified; E78.5 Hyperlipidemia, unspecified; F41.9 Anxiety disorder, unspecified; F17.200 Nicotine dependence, unspecified, uncomplicated; I25.10 Atherosclerotic heart disease of native coronary artery without angina pectoris; I10 Essential (primary) hypertension; K20.9 Esophagitis, unspecified; M19.012 Primary osteoarthritis, left shoulder; M19.011 Primary osteoarthritis, right shoulder; M17.0 Bilateral primary osteoarthritis of knee; M54.17 Radiculopathy, lumbosacral region; M54.12 Radiculopathy, cervical region; N81.89 Other female genital prolapse; N39.46 Mixed incontinence; R06.00 Dyspnea, unspecified; Z90.49 Acquired absence of other specified parts of digestive tract; Z68.36 Body mass index [BMI] 36.0-36.9, adult
CPT/HCPCS: 36415; 36600; 71045; 71046; 76942; 80048; 80053; 82803; 82945; 83540; 83605; 83615; 83735; 84157; 84443; 85025; 85610; 85730; 87070; 87075; 87102; 87116; 88104; 88305; 89051; 93306; 94664; J0456; J2916

== ENCOUNTER 2018-12-12 08:29 | Day surgery (SDC) | payer MEDICARE, OTHER ==
[~2018-12-12] VITALS: Ht 160 cm; Wt 99.1 kg
[~2018-12-12 08:29] MED LIST: CLON-379 PO; LEVO75TA5 PO; LOSA50TA14 PO; METO-429 PO; OMEP1CAP24 PO
[2018-12-12] MEDS ORDERED: ATOR20TA38 PO (09:04)
[2018-12-12] MEDS ORDERED: BUPR150T6 PO (09:05)
[2018-12-12 09:08] VITALS: BP 144/66; PULSE 95; RESP 16
[2018-12-12 09:15] VITALS: Ht 160 cm; Wt 99.1 kg
[2018-12-12] MEDS ORDERED: LIDOCAINE 1% (MPF) 5 ML VIAL ONE (10:51)
[2018-12-12 11:15] VITALS: BP 171/86; PULSE 63; RESP 18
[2018-12-12 12:17] VITALS: BP 138/79; PULSE 61; RESP 18
--- NOTE | 2018-12-14 20:57 | HP ---
Date/Time of Note Date/Time of Note DATE: 12/14/18 TIME: 20:53 Assessment/Plan VTE Prophylaxis SCD contraindicated: other (No) Pharmacological prophylaxis: other (No) Lines/Catheters IV Catheter Type (from Nrs): [facility] line still needed: No Urinary Cath still in place: No Reason Cath still needed: other (indicate) (No need.) Assessment/Plan Assessment/Plan 1. Recommendation of a pleural fluid by outpatient chest x-ray plan to perform a total synthesis ; during previous hospitalization on October S/P thoracentesis, 10/25/2018; Approximately 1.0 liters of serous fluid was aspirated for moderate sized right pleural effusion. Got the report from pathology that no malignant cells in the cytology fluid was identified. This is not excluding fully the presence of malignant disease which is highly probable on my opinion further work-up in conclusion by cardiothoracic surgeon. 2. PET proven 1.3/0 0.8 cm well-circumscribed bright circumscribed nodular soft tissue attenuation in the left upper lobe abutting the descending thoracic aorta at the level of just below the aortic arch demonstrating maximum SUV of 4.2 this is nonspecific finding which may be malignant or inflammatory. 3.Pet proven lung mass size of almost 10 cm in the apical region of left upper lobe ,demonstrating associated air bronchograms with according to the patient PET scan report there was a lower level of metabolic activity in this process is most consistent with a benign process such mucous plaque causing postobstructive atelectasis versus resolving pneumonia the probability for hypometabolic carcinoma cannot be excluded(according to PET report). 4. Thickening of the mucosa of the distal esophagus measuring 1.3 cm in thickness demonstrating maximum SUV of 5.0 without focal mass most likely chronic esophagitis;According to PET scan . 5.0.9 to 0.9 cm left adrenal gland nodule likely an adenoma(According to PET). 6.Hepatomegaly 7.S/P cholecystectomy . 8.Bilateral hemorrhagic renal cysts . 9.Atherosclerotic disease. 10.COPD 11. nicotine addiction with 1 to 1/2 pack smoking more than 50 years until yesterday. History of short period of not smoking couple of months. 12. Morbid obesity 13. Snoring with apnea 14. Dyslipidemia 15. Low back pain 16. The lumbar sacral and cervical radiculopathy 17. Pelvic relaxation with mixed incontinence 18. 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 19. 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 20. Polycythemia 21. Hypothyroidism currently on levothyroxine 75 mcg daily. 22. Incomplete data. Results 24hrs Laboratory Tests Test 12/14/18 10:11 Lab Scanned Report REFERENCE LAB HPI/ROS Admit Date/Time Admit Date/Time Hx of Present Illness Patient evaluated as an outpatient found to have a left-sided pleural effusion recommended thoracentesis which will be both diagnostic and therapeutic. ROS Constitutional: improved, fatigue, nausea; No no complaints, No chills, No diaphoresis, No disoriented, No febrile, No poor po, No weight change, No other Eyes: No no complaints, No pain, No discharge, No redness, No visual change, No other ENT: congestion, dysphagia; No no complaints, No bleeding, No pain, No discharge, No sore throat, No other Respiratory: cough; No no complaints, No pain, No pleuritic pain, No shortness of breath, No sputum, No wheezing, No other Cardiovascular: chest pain, lightheadedness, orthopenea; No no complaints, No edema, No palpitations, No paroxysmal nocturnal dyspnea, No other Gastrointestinal: pain, constipation, decreased appetite, flatus, nausea; No no complaints, No blood, No diarrhea, No passing stool, No vomiting, No other Genitourinary: dysuria; No no complaints, No bleeding, No discharge, No flank pain, No hematuria, No other Musculoskeletal: back pain, bone/joint pain, neck pain; No no complaints, No restricted range of motion, No swelling, No other Neurologic: dizziness, headache, syncope; No no complaints, No confusion, No focal-weakness, No seizure, No other Endocrine: polydypsia, weight change; No no complaints, No polyuria, No dry skin, No temp intolerance, No other Lymphatic: No no complaints, No adenopathy, No tender nodes, No lymphadema, No other PMH/Family/Social Past Medical History Medical History: angina, congestive heart failure, coronary artery disease, diabetes, diverticulitis, gallstones, GERD, GI bleed, high cholesterol, hypertension, irritable bowel syndrome, urinary tract infection Coded Allergies: No Known Allergy (Unverified , 12/12/18) Past Surgical History Past Surgical Hx: cholecystectomy Family History Significant Family History: heart disease, COPD Social History Alcohol Use: none Smoking Status: Current every day smoker Drug Use: none Exam/Review of Systems Vital Signs Vitals Vital Signs Date Temp Pulse Resp B/P (MAP) Pulse Ox O2 O2 Flow FiO2 Time Delivery Rate 12/12/18 97.8 61 18 138/79 99 Room Air 12:17 (98) Exam Constitutional: alert, oriented, well developed, distress; No non-verbal, No frail, No other Psych: anxiety, confusion; No no complaints, No nl mood/affect, No depression, No suicidal, No other Head: normocephalic, atraumatic Eyes: EOMI, nl lids, PERRL; No nl conjunctiva, No nl sclera, No icteric, No fundi, disc, No other ENMT: nl lips & teeth, nl nasal mucosa & septum Neck: jvd, bruits, masses; No supple, No non-tender, No thyromegaly, No nuchal rigidity, No other Respiratory: congested cough, diminished breath sounds; No clear to auscultation, No normal air movement, No crackles/rales, No intercostal retraction, No labored breathing, No respirations, No tactile fremitus, No wheezing, No other Cardiovascular: nl pulses, edema, jugular venous distention (JVD), systolic murmur; No regular rate and rhythm, No bruits, No diastolic murmur, No gallop, No irregular rhythm, No murmurs/extra sounds, No rub, No S3, No S4, No other Gastrointestinal: soft, nl liver, spleen, bowel sounds, distended; No non-tender, No ascites, No firm, No hepatomegaly, No mass, No rebound or guarding, No splenomegaly, No surgical scars, No tender, No other Genitourinary - Female: nl adnexae, nl external genitalia; No CMT, No CVA tenderness, No uterus, No other Musculoskeletal: joint tenderness, muscle tone, muscle weakness; No nl extremities to inspection, No nl gait and stance, No range of motion, No spine non-tender, No swelling, No other Extremities: normal pulses, cyanosis; No calf tenderness, No clubbing, No edema, No pitting pedal edema, No palpable cord, No tenderness, No other MAGDA JOSÉ MD Dec 14, 2018 20:57
== END 2018-12-12 12:26 | disposition home or self-care (01) ==
LOC: RAD 08:29
PROVIDERS: ATTEND Internal Medicine
DX: J90 Pleural effusion, not elsewhere classified (principal); E78.5 Hyperlipidemia, unspecified; E03.9 Hypothyroidism, unspecified; I25.10 Atherosclerotic heart disease of native coronary artery without angina pectoris; J44.9 Chronic obstructive pulmonary disease, unspecified; E66.01 Morbid (severe) obesity due to excess calories; Z68.38 Body mass index [BMI] 38.0-38.9, adult
CPT/HCPCS: 71045; 76942; 82042; 85610; 85730; 87070; 87102; 87116; 89051